=== PATIENT | male | born 1960 | race Caucasian/White ===

== ENCOUNTER 2018-07-24 05:31 | Inpatient (IN) | payer OTHER ==
[2018-07-19 10:28] VITALS: BMI 25.7
--- NOTE | 2018-07-19 10:39 | HP ---
HISTORY OF PRESENT ILLNESS Patient is a 58 year old male with a significant past medical history of COPD ( denies every day use of cigarettes), former smoker, and alcohol abuse (with history of withdrawal seizures - denies and recent seizures) hypertension, hyperlipidemia, bilateral knee surgeries and two falls, his last fall was September 2017. Patient presents to the [facility] unit today for a scheduled pre surgical history and physical. His chart with his EKG and other imaging is currently with his PCP Dr. Wayne, and I am unable to access that data. Patient states he had an EKG on Monday with Dr. Wayne. medical clearance to be provided by PCP. 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 He is currently receiving workmans compensation. He reports that he has bilateral foot numbness that began after he had extensive knee surgery. He had a total right knee replacement August [address] [facility]. He had 5 surgeries of his left knee. He reports that his left knee has been infected a few times and needed surgical washouts, replacement repair and a total knee replacement of left knee. Patient denies any other medical history, does not take any blood thinners or NSAIDS. Current Medications: gabapentin 300mg tid percocet 325/5 as needed inhalers> Symbicort 80/4 - 2 times per day albuterol sufate inhaler 2 puff - as needed PCP: Tone EKG done at dr Wayne office and pre op clearance to be provided by his PCP dr. Wayne allergy: vanco, severe skin eruption Recent travel: none Family History: , lives with spouse - 1 child 23 Social History: on workers comp, Smoking: some days no smoking, some days 1 2 cigarettes Alcohol: occasionally, denies daily drinking, has been detoxed at [facility] in the past Drugs: none reported REVIEW OF SYSTEMS CONSTITUTIONAL: Absent: fever, chills, diaphoresis, generalized weakness, malaise, loss of appetite, weight change HEENT: Absent: rhinorrhea, nasal congestion, throat pain, throat swelling, difficulty swallowing, mouth swelling, ear pain, eye pain, visual changes CARDIOVASCULAR: Absent: chest pain, syncope, palpitations, irregular heart rate, lightheadedness , peripheral edema RESPIRATORY: Absent: cough, shortness of breath with physical exertion 2/2 to COPD, orthopnea , wheezing, stridor, hemoptysis GASTROINTESTINAL: Absent: abdominal pain, abdominal distension, nausea, vomiting, diarrhea, constipation, melena, hematochezia GENITOURINARY: Absent: dysuria, frequency, urgency, hesitancy, hematuria, flank pain, genital pain MUSCULOSKELETAL: Absent: myalgia, arthralgia, joint swelling, back pain, neck pain SKIN: Absent: rash, itching, pallor HEMATOLOGIC/IMMUNOLOGIC: Absent: easy bleeding, easy bruising, lymphadenopathy, frequent infections ENDOCRINE: Absent: unexplained weight gain, unexplained weight loss, heat intolerance, cold intolerance NEUROLOGIC: Absent: headache, focal weakness or paresthesias, dizziness, unsteady gait, seizure, mental status changes, bladder or bowel incontinence PSYCHIATRIC: Absent: anxiety, depression, suicidal or homicidal ideation, hallucinations. PHYSICAL EXAMINATION: GENERAL: Awake, alert, and fully oriented, in no acute distress. HEAD: Normal with no signs of trauma. EYES: Pupils equal, round and reactive to light, extraocular movements intact, sclera anicteric, conjunctiva clear. No lid lag. EARS, NOSE, THROAT: Ears normal, nares patent, oropharynx clear without exudates. Moist mucous membranes. NECK: Normal range of motion, supple without lymphadenopathy, JVD, or masses. LUNGS: Breath sounds equal, clear to auscultation bilaterally. No wheezes, and no crackles. No accessory muscle use. HEART: Regular rate and rhythm, normal S1 and S2 without murmur, rub or gallop. ABDOMEN: Soft, nontender, not distended, normoactive bowel sounds, no guarding, no rebound, no masses. No hepatomegaly or splenomegaly. MUSCULOSKELETAL: Normal range of motion at all joints. No bony deformities or tenderness. No CVA tenderness. UPPER EXTREMITIES: 2+ pulses, warm, well-perfused. No cyanosis. No clubbing. No peripheral edema. LOWER EXTREMITIES: trace edema bilaterally - on ankles NEUROLOGICAL: Normal speech. Normal gait. PSYCHIATRIC: Cooperative. Good eye contact. Appropriate mood and affect. SKIN: Warm, dry, normal turgor, no rashes or lesions noted, normal capillary refill. ASSESSMENT/PLAN: Patient is a 58 year old male with a significant past medical history of COPD ( denies every day use of cigarettes), former smoker, and alcohol abuse (with history of withdrawal seizures - denies and recent seizures) hypertension, hyperlipidemia, bilateral knee surgeries and falls. Patient presents today to [facility] for a pre op history and physical. Patient is scheduled for back surgery with Dr. Dillard on 07/24/2018. Pulm: COPD. chronic controlled with home inhalers Psyche ETOH abuse, chronic has been in detox at [facility] History of withdrawal seizures Pt denies any ETOH use, no tremors or signs of w/drawal on exam. Card: Hypertension, chronic On no home medications HLD, chronic on no home medications. Medical clearance for this surgery to be provided by Dr. Alan Wayne.
[2018-07-24] MEDS ORDERED: GENTAMICIN SO4 80 MG/2 ML VIAL ONE (07:47)
[2018-07-24] MEDS ORDERED: THROMBIN (BOVINE) 5,000 UNIT VIAL TP ONE (07:48)
[2018-07-24] MEDS ORDERED: BUPIVACAINE HCL/PF 0.5% (5MG/ML) 10 ML VIAL ONE (07:48)
[2018-07-24] MEDS ORDERED: PROPOFOL 20 ML ONE ×2 (07:54)
[2018-07-24] MEDS ORDERED: ROCURONIUM BROMIDE 50 MG/5 ML VIAL ONE ×2 (07:54)
[2018-07-24] MEDS ORDERED: MIDAZOLAM HCL 2 MG/2 ML SINGLE DOSE VIAL ONE (07:54)
[2018-07-24] MEDS ORDERED: LIDOCAINE HCL/PF 2% SDV 5ML VIAL ONE (08:24)
[2018-07-24] MEDS ORDERED: ceFAZolin SODIUM 1 GM VIAL ONE (08:29)
[2018-07-24] MEDS ORDERED: SODIUM CHLORIDE 0.9% P/F 10 ML VIAL IJ ONE (08:29)
[2018-07-24] MEDS ORDERED: ONDANSETRON 4 MG/2 ML VIAL ONE (08:31)
[2018-07-24] MEDS ORDERED: ceFAZolin SODIUM 1 GM VIAL IVPB ONE (08:31)
[2018-07-24] MEDS ORDERED: DEXAMETHASONE SOD PHOSPHATE 4 MG/1 ML VIAL ONE (08:31)
[2018-07-24] MEDS ORDERED: LIDOCAINE 1%/EPI 1:100000 (50 ML MULTI DOSE VIAL) NR ONE (08:45)
[2018-07-24] MEDS ORDERED: GLYCOPYRROLATE 0.2 MG/1 ML VIAL ONE (09:16)
[2018-07-24] MEDS ORDERED: NEOSTIGMINE METHYLSULFATE 0.5 MG/1 ML - 10 ML MDV ONE (09:16)
[2018-07-24] MEDS ORDERED: BUPIVACAINE HCL/PF 0.25% (2.5MG/ML) 10 ML VIAL ONE (09:25)
[2018-07-24] MEDS ORDERED: ONDANSETRON 4 MG/2 ML VIAL IVPUSH PRN ×2 (09:44→09:45)
[2018-07-24] MEDS ORDERED: oxyCODONE HCL 5 MG TABLET PO PRN ×2 (09:44→09:45)
[2018-07-24] MEDS ORDERED: PROMETHAZINE HCL 25 MG/1 ML VIAL IVPUSH PRN (09:44)
--- NOTE | 2018-07-24 09:44 | SURG ---
Surgery Cost Control Supervisor Note Cost Control Supervisor: Matthew Alejandre PA-C Date of Service: 07/24/18 Diagnosis: Sacral cyst Procedure: Sacral laminectomies, microscopic resection of fenistrated cyst I was present for the entirety of the operative procedure. For further detail, please refer to operative report.
[2018-07-24] MEDS ORDERED: morphine CARPU-JECT 4 MG/1 ML DISP.SYRIN IVPUSH PRN (09:45)
[2018-07-24] MEDS ORDERED: LACTATED RINGERS SOLUTION 1,000 ML IV SCH (09:45)
[2018-07-24] MEDS ORDERED: diphenhydrAMINE HCL 25 MG CAPSULE (FP) PO PRN (09:45)
--- NOTE | 2018-07-24 09:58 | OP ---
Operative Note - Note: Operative Date: 07/24/18 Pre-Operative Diagnosis: Sacral cyst Operation: Sacral laminectomies, microscopic resection of fenistrated cyst Post-Operative Diagnosis: Same as Pre-op Surgeon: Elias Dillard Peanut Picker: Matthew Alejandre Anesthesiologist/HOME OFFICE CLAIMS EXAMINER: Francisco Escalante Anesthesia: General Estimated Blood Loss (mls): 2 Operative Report Dictated: Yes
[2018-07-24] MEDS: FOLIC ACID 1 MG TABLET (FP) PO SCH (18:27)
[2018-07-24] MEDS: HEPARIN NA (PORCINE) 5,000 UNITS/ML 1ML VIAL SQ SCH ×2 (18:27→22:41)
[2018-07-24] MEDS: FERROUS SO4 325 MG TABLET (FP) PO SCH (18:27)
[2018-07-24] MEDS: ALBUTEROL SO4 8 GM HFA INHALER IH SCH (18:28)
[2018-07-24] MEDS: DOCUSATE SODIUM 100 MG CAPSULE (FP) PO SCH ×2 (18:28→22:41)
[2018-07-24] MEDS: GABAPENTIN 300 MG CAPSULE (FP) PO SCH ×2 (18:28→22:41)
[2018-07-24] MEDS: BUDESONIDE/FORMETEROL FUMARATE 80/4.5 mcg INHALER IH SCH ×2 (18:28→22:41)
[2018-07-24] MEDS ORDERED: MAG HYDROX/AL HYDROX/SIMETH 30 ML UNIT-DOSE CUP PO ONE (18:30)
[2018-07-24] MEDS: oxyCODONE HCL 5 MG TABLET PO PRN (21:32)
[2018-07-24] MEDS ORDERED: PT OWN MED DRAWER 7, Y5N ONE (22:00)
[2018-07-25] MEDS: oxyCODONE HCL 5 MG TABLET PO PRN (03:08)
[2018-07-25 05:32] VITALS: BP 121/72; PULSE 60; TEMP 98.2
[2018-07-25] MEDS: GABAPENTIN 300 MG CAPSULE (FP) PO SCH (06:20)
[2018-07-25] MEDS: DOCUSATE SODIUM 100 MG CAPSULE (FP) PO SCH (06:20)
[2018-07-25] MEDS: HEPARIN NA (PORCINE) 5,000 UNITS/ML 1ML VIAL SQ SCH (06:20)
[2018-07-25 08:06] LABS: HEMATOCRIT 37.5 % (35.4-49); HEMOGLOBIN 12.7 GM/dL (11.7-16.9); MCH 33.7 pg (25.7-33.7); MEAN CELL VOLUME 99.2 fl (80-96); MEAN PLT VOLUME 10.5 fl (7.5-11.1); PLATELET COUNT 75 K/MM3 (134-434); RBC 3.78 M/mm3 (4.00-5.60); RDW 16.7 % (11.9-15.9)
[2018-07-25 08:14] LABS: ANION GAP 9 MMOL/L (8-16); BLOOD UREA NITROGEN 7 mg/dL (7-18); CALCIUM 8.5 mg/dL (8.5-10.1); CHLORIDE 101 mmol/L (98-107); CO2 27 mmol/L (21-32); CREATININE 0.8 mg/dL (0.55-1.3); GLUCOSE,RANDOM 129 mg/dL (74-106); POTASSIUM 3.6 mmol/L (3.5-5.1); SODIUM 136 mmol/L (136-145)
--- NOTE | 2018-07-25 08:44 | PN ---
Progress Note (short form) - Note Progress Note: POD1, Sacral laminectomies, microscopic resection of fenestrated cyst Pt seen and examined. States he is feeling well. Slept well overnight. Has been oob without issue. Tolerating Po, voiding without issue. Denies cp/sob, n/v/d, ana pain/edema. Vital Signs Temp 98.2 F 07/25/18 05:29 Pulse 60 07/25/18 05:29 Resp 20 07/25/18 05:29 BP 121/72 07/25/18 05:29 Pulse Ox 98 07/24/18 17:45 Intake & Output 07/24/18 07/24/18 07/25/18 11:59 23:59 11:59 Intake Total 1800 1500 Output Total 602 250 Balance 1198 1250 Intake: IV 1800 1500 Lactated Ringers Solution 1500 1,000 ml @ 125 mls/hr IV ASDIR CEDRIC Rx#: [id number] Output: Urine 600 250 Void 250 Estimated Blood Loss 2 CBC, BMP 07/25/18 06:30 07/25/18 06:30 Gen: awake, alert, nad Resp: unlabored on room air. Lower back: Dressing completely off, dermabond intact. Incision c/d/i, new gauze and tegaderm applied. Neuro: B/L le's dorsiflexion/plantar flexion, hip flexion/extension 5/5, L foot sensation decreased as compared to R (baseline per pt). A/P: 58 y/o M w/ PMHx COPD, former smoker, and alcohol abuse (with history of withdrawal seizures - denies and recent seizures) hypertension, hyperlipidemia, bilateral knee surgeries and falls, now POD 1, s/p Sacral laminectomies, microscopic resection of fenestrated cyst for a Sacral cyst. Doing well this morning. Neuro exam stable. Low platelets on AM labs, discussed with pts PCP Dr Alan Wayne, pt had low platelets on preop evaluation, planned for outpt workup. -D/C this AM -Instructions reviewed with pt at length, pt verbalized understanding. Pt aware to follow up with Dr Wayne on d/c Above d/w attending Dr Murrell
[2018-07-25] MEDS: FOLIC ACID 1 MG TABLET (FP) PO SCH (10:13)
[2018-07-25] MEDS: ALBUTEROL SO4 8 GM HFA INHALER IH SCH (10:13)
[2018-07-25] MEDS: FERROUS SO4 325 MG TABLET (FP) PO SCH (10:13)
--- NOTE | 2018-07-25 18:51 | PATH ---
Surgical Pathology Report Patient Name: ZANDRA QUINTANILLA [facility]. Rec. #: [id number] /Age/Gender: 1960 (Age: 58) / M Account: [id number] Location: [address] [place] [address]/[facility] Taken: 07/24/2018 Received: 07/24/2018 Reported: 07/25/2018 Physicians: Elias Brito M.D. Specimen(s) Received SACRAL CYST Clinical History Sacral cyst Final Diagnosis SACRAL CYST, EXCISION: FRAGMENT OF DENSE FIBROCONNECTIVE TISSUE AND SCANT BONE. NO LINING EPITHELIUM IDENTIFIED. Electronically Signed Silvia Chairez M.D. Gross Description Received in formalin labeled "sacral cyst," is a 0.4 cm greatest dimension armendariz soft tissue fragment. The specimen is submitted in toto in one cassette. /07/24/201807/24/2018
== END 2018-07-25 10:34 | disposition home or self-care (01) | DRG 29 ==
LOC: JSAMEDAYSX 05:31 → EDSTATUS 08:00 → J6S 18:06
PROVIDERS: ADMIT Neurological Surgery; ATTEND Neurological Surgery
PROC: 00UT0KZ Supplement Spinal Meninges with Nonautologous Tissue Substitute, Open Approach (ICD-10-PCS; 2018-07-24)
PROC: 0JX70ZZ Transfer Back Subcutaneous Tissue and Fascia, Open Approach (ICD-10-PCS; 2018-07-24)
PROC: 01NR0ZZ Release Sacral Nerve, Open Approach (ICD-10-PCS; 2018-07-24)
PROC: B01BZZZ Fluoroscopy of Spinal Cord (ICD-10-PCS; 2018-07-24)
PROC: 0QB10ZZ Excision of Sacrum, Open Approach (ICD-10-PCS; principal; 2018-07-24 08:00)
DX: D33.4 Benign neoplasm of spinal cord (principal); G96.0 Cerebrospinal fluid leak; J44.9 Chronic obstructive pulmonary disease, unspecified; E78.5 Hyperlipidemia, unspecified; Z87.891 Personal history of nicotine dependence; R20.2 Paresthesia of skin; F10.20 Alcohol dependence, uncomplicated
CPT/HCPCS: 36415; 80048; 85027; 86850; 86900; 86901; 88304-TC; 94760; J1644

== ENCOUNTER 2018-08-21 10:30 | Emergency (ER) | payer OTHER ==
[2018-08-21 10:41] VITALS: BMI 25.8
--- NOTE | 2018-08-21 11:47 | PDOC ---
History of Present Illness - General Chief Complaint: Wound Stated Complaint: WOUND Time Seen by Provider: 08/21/18 10:46 History Source: Patient Exam Limitations: No Limitations - History of Present Illness Initial Comments: 08/21/18 11:36 58-year-old male presents to ED with complaints of drainage from his lumbar 1. Patient states had surgery about [address] Mile Benson which she states has had follow-up in the office with since then. Patient states last visit was one week ago where he stated that drainage along with intermittent mild frontal headache. Patient denies fever, chills worsening headache, increased drainage was redness swelling to the area. Patient was placed on antibiotics last week by the surgeon. Timing/Duration: constant Severity: mild Associated Symptoms: reports: other Past History - Travel Traveled outside of the country in the last 30 days: No Close contact w/someone who was outside of country & ill: No - Past Medical History Allergies/Adverse Reactions: Allergies Allergy/AdvReac Type Severity Reaction Status Date / Time vancomycin [From Vancocin] Allergy Severe Rash Verified 08/21/18 10:37 Home Medications: Ambulatory Orders Albuterol Sulfate Inhaler - [Ventolin HFA Inhaler -] 2 inh IH DAILY #1 inh 02/14 Budesonide/Formeterol Fumarate [SYMBICORT 80/4.5mcg -] 1 inh IH BID #1 inhaler 02/14/15 Gabapentin 300 mg PO Q8H 07/19/18 Oxycodone HCl/Acetaminophen [Percocet 5-325 mg Tablet] 1 tab PO PRN PRN Anemia: Yes Asthma: Yes Cancer: No Cardiac Disorders: No CVA: No COPD: Yes CHF: No Dementia: No Diabetes: No GI Disorders: Yes (in the past reflux) Disorders: No HTN: Yes Hypercholesterolemia: No Liver Disease: No Seizures: No Thyroid Disease: No - Surgical History Abdominal Surgery: No Appendectomy: No Cardiac Surgery: No Cholecystectomy: No Lung Surgery: No Neurologic Surgery: No Orthopedic Surgery: Yes (LEFT KNEE TOTAL X 5; RIGHT KNEE TOTAL X 1) - Suicide/Smoking/Psychosocial Hx Smoking Status: Yes Smoking History: Current some day smoker Have you smoked in the past 12 months: Yes Number of Cigarettes Smoked Daily: 5 Information on smoking cessation initiated: No 'Breaking Loose' booklet given: 07/19/18 Hx Alcohol Use: Yes (SOCIAL) Drug/Substance Use Hx: No Substance Use Type: Alcohol Hx Substance Use Treatment: No Patient Lives Alone: Yes Lives with/in: lives alone Review of Systems - Review of Systems Able to Perform ROS?: No Is the patient limited Serbian proficient: No Constitutional: No: Symptoms Reported HEENTM: No: Symptoms Reported Respiratory: No: Symptoms reported Cardiac (ROS): No: Symptoms Reported ABD/GI: No: Symptoms Reported : No: Symptoms Reported Musculoskeletal: Yes: Back Pain (mild) Integumentary: Yes: Other Neurological: No: Symptoms reported *Physical Exam - Vital Signs Last Vital Signs Temp Pulse Resp BP Pulse Ox 97.5 F L 76 19 127/66 98 08/21/18 10:37 08/21/18 10:37 08/21/18 10:37 08/21/18 10:37 08/21/18 10:37 - Physical Exam General Appearance: Yes: Nourished, Appropriately Dressed. No: Apparent Distress Neck: positive: Supple Respiratory/Chest: positive: Lungs Clear, Normal Breath Sounds. negative: Respiratory Distress, Accessory Muscle Use Cardiovascular: positive: Regular Rhythm, Regular Rate. negative: Murmur Gastrointestinal/Abdominal: positive: Soft. negative: Tenderness Male Genitalia: negative: normal genitalia Musculoskeletal: negative: Normal Inspection, Vertebral Tenderness Extremity: negative: Normal Capillary Refill Integumentary: positive: Other (noted 0.25 cm opened pink granuluating wound over the lumbar spine draining small amount of armendariz cloudy drainage. surrounding skin intact) Neurologic: positive: Motor Strength 5/5 (ambulatory) Moderate Sedation - Procedure Monitoring Vital Signs: Procedure Monitoring Vital Signs Temperature 97.5 F L 08/21/18 10:37 Pulse Rate 76 08/21/18 10:37 Respiratory Rate 19 08/21/18 10:37 Blood Pressure 127/66 08/21/18 10:37 O2 Sat by Pulse Oximetry (%) 98 08/21/18 10:37 ED Treatment Course - LABORATORY CBC & Chemistry Diagram: 08/21/18 12:15 08/21/18 12:15 Medical Decision Making - Medical Decision Making 08/21/18 12:00 Chief complaint: Draining lumbar wound status post resection of cyst last month by Dr. Benson. Patient currently on antibiotics secondary to symptoms. No other complaints. Exam: Noted healing granulating lumbar wound Plan: Microblog sent to surgeon who according to his service is in surgery currently. Patient ordered for labs, wound culture, blood culture, lactic acid and CT with contrast of the lumbar spine. 08/21/18 14:31 Laboratory Tests 08/21/18 08/21/18 08/21/18 12:15 12:15 12:15 WBC 3.2 L Hgb 15.1 Hct 43.8 D Plt Count 73 L Absolute Neuts (auto) 1.5 Sodium 133 L Potassium 4.2 Chloride 102 Carbon Dioxide 23 Anion Gap 8 BUN 3 L Creatinine 0.7 Creat Clearance w eGFR > 60 Random Glucose 96 Lactic Acid 3.2 H* Calcium 8.5 Total Bilirubin 0.3 AST 115 H ALT 63 H Alkaline Phosphatase 100 Total Protein 7.7 Albumin 3.[address] Benson, neurosurgeon is recommending wound care clinic evaluation for wound vac?. Pt is to continue w/ po abx. Patient ordered for second liter of fluid along with repeat lactic acid. Pt requesting to leave. Both dr benson and myself explained the importance of ED Care. 08/21/18 14:36 I have scheduled an appointment for 8 AM tomorrow with the wound care clinic. *DC/Admit/Observation/Transfer Diagnosis at time of Disposition: Open wound of lumbar region with complication - Discharge Dispostion Disposition: HOME Condition at time of disposition: Improved - Referrals - Patient Instructions Printed Discharge Instructions: How to Care for a Surgical Wound Additional Instructions: Please continue to take antibiotics. Please go directly to wound care clinic tomorrow morning at 8 AM on the fifth floor here at [facility] - Post Discharge Activity
[2018-08-21 12:32] LABS: BASO % 0.7 % (0-2.0); HEMATOCRIT 43.8 % (35.4-49); HEMOGLOBIN 15.1 GM/dL (11.7-16.9); LYMPH % 25.6 % (8-40); MCH 34.1 pg (25.7-33.7); MCHC 34.4 g/dl (32.0-35.9); MEAN CELL VOLUME 99.1 fl (80-96); MEAN PLT VOLUME 10.7 fl (7.5-11.1); MONO % 25.5 % (3.8-10.2); NEUT % 46.2 % (42.8-82.8); PLATELET COUNT 73 K/MM3 (134-434); RBC 4.42 M/mm3 (4.00-5.60); RDW 14.2 % (11.9-15.9); WHITE BLOOD COUNT 3.2 K/mm3 (4.0-10.0)
[2018-08-21 12:53] LABS: ALBUMIN 3.7 g/dl (3.4-5.0); ALK PHOS 100 U/L (45-117); ANION GAP 8 MMOL/L (8-16); BILIRUBIN,TOTAL 0.3 mg/dL (0.2-1); BLOOD UREA NITROGEN 3 mg/dL (7-18); CALCIUM 8.5 mg/dL (8.5-10.1); CHLORIDE 102 mmol/L (98-107); CO2 23 mmol/L (21-32); CREATININE 0.7 mg/dL (0.55-1.3); GLUCOSE,RANDOM 96 mg/dL (74-106); POTASSIUM 4.2 mmol/L (3.5-5.1); SGOT/AST 115 U/L (15-37); SGPT/ALT 63 U/L (13-61); SODIUM 133 mmol/L (136-145); TOT PROT 7.7 g/dl (6.4-8.2)
[2018-08-21] MEDS ORDERED: SODIUM CHLORIDE 1,000 ML IV STA (14:12)
[2018-08-21 14:27] LABS: ANISOCYTOSIS 1+; MACROCYTOSIS 1+; PLATELET ESTIMATE DECREASED
[2018-08-21 15:02] VITALS: BP 143/78; PULSE 70; TEMP 98.1
== END 2018-08-21 15:03 | disposition home or self-care (01) ==
LOC: JER 10:30
PROC: 3E0337Z Introduction of Electrolytic and Water Balance Substance into Peripheral Vein, Percutaneous Approach (ICD-10-PCS; principal; 2018-08-21)
DX: S31.000A Unspecified open wound of lower back and pelvis without penetration into retroperitoneum, initial encounter (principal); Y83.8 Other surgical procedures as the cause of abnormal reaction of the patient, or of later complication, without mention of misadventure at the time of the procedure; Y93.9 Activity, unspecified; Y92.018 Other place in single-family (private) house as the place of occurrence of the external cause
CPT/HCPCS: 36415; 72133-TC; 80053; 83605; 85025; 87040; 87070; 87186; 87205; 96360; 99283-25; J7030